=== PATIENT | male | born 1985 | race Caucasian/White ===

== ENCOUNTER 2020-10-10 00:51 | Emergency (ER) | payer BC ==
[2020-10-10 01:00] VITALS: TEMP 97.5
[2020-10-10] MEDS ORDERED: SODIUM CHLORIDE 0.9% 1,000 ML IV ONE (01:21)
[2020-10-10] MEDS ORDERED: SODIUM CHLORIDE 0.9% 1,000 ML IV SCH (01:30)
--- NOTE | 2020-10-10 02:08 | CT ---
EXAM: CT Head Without Intravenous Contrast CLINICAL HISTORY: ITS.REASON CT Reason: headache, acute TECHNIQUE: Axial computed tomography images of the head/brain without intravenous contrast. CTDI is 49.27 mGy and DLP is 1068.4 mGy-cm. This CT exam was performed using one or more of the following dose reduction techniques: automated exposure control, adjustment of the mA and/or kV according to patient size, and/or use of iterative reconstruction technique. COMPARISON: No relevant prior studies available. FINDINGS: Brain: No hemorrhage or mass effect. Ventricles: No hydrocephalus. Bones/joints: Unremarkable. Soft tissues: Unremarkable. Sinuses: Mucosal retention cyst in the left maxillary sinus. Mastoid air cells: Clear. IMPRESSION: No acute hemorrhage, hydrocephalus, or mass effect.
[2020-10-10] MEDS ORDERED: KETOROLAC 15 MG/ML 1 ML VIAL IVP STA (02:10)
[2020-10-10] MEDS ORDERED: HYDROmorphone 0.5 MG/0.5 ML SYRINGE IVP STA (02:10)
[2020-10-10] MEDS ORDERED: ONDANSETRON 4 MG/2 ML VIAL IVP STA (02:13)
[2020-10-10] MEDS ORDERED: LORazepam 2 MG/ML INJ IV STA (02:49)
--- NOTE | 2020-10-10 02:58 | ED ---
Headache HPI <Sahil Rankin - Last Filed: 10/10/20 03:40> - General Mode of arrival: ambulatory Limitations: no limitations <Valery Rollins - Last Filed: 10/10/20 19:46> - General Chief Complaint: Headache Stated Complaint: Headache Time Seen by Provider: 10/10/20 01:04 - History of Present Illness Initial Comments: 34-year-old male presenting today for chief complaint of headache light sensitivity and sound sensitivity. Patient states that he has chronic migraines, he states he has seen a neurologist in the past and has had previous imaging of his brain he denies a known history of aneurysm or masses. He states his mother does have history of brain masses he states he does not believe that they are cancerous. Patient states that for the past 6 days he has had a headache he states he has had some associated nausea light sensitivity as well as sound sensitivity which does tend to occur with his headaches. Patient states due to him being unable to abort the headache he presented to the emergency department today. He denies sudden onset of headache he states was gradual and not sure of the exact start she denies this being the worst headache was like the states it definitely has lasted the longest. Patient states he did take sumatriptan yesterday which did not help. Patient denies any focalized weakness sensation deficits he denies any speech changes visual loss or diplopia. Patient denies any fevers neck stiffness or upper respiratory symptoms. He states at times he feels achy. Patient denies diarrhea, vomiting, abdominal pain, chest pain ro dyspnea. remaining ROS (-). Upon arrival patient appears nontoxic. (Valery Rollins) - Related Data Allergies Allergy/AdvReac Type Severity Reaction Status Date / Time Morpholine Analogues Allergy Nausea & Verified 10/10/20 01:00 Vomiting shellfish derived Allergy Anaphylaxis Verified 10/10/20 01:00 Review of Systems ROS Other: All systems not noted in ROS Statement are negative. <Sahil Rankin - Last Filed: 10/10/20 03:40> ROS Other: All systems not noted in ROS Statement are negative. <Valery Rollins - Last Filed: 10/10/20 19:46> ROS Statement: Those systems with pertinent positive or pertinent negative responses have been documented in the HPI. Past Medical History Past Medical History: Asthma, Hypertension Additional Past Medical History / Comment(s): seasonal allergies, migraines History of Any Multi-Drug Resistant Organisms: None Reported Past Surgical History: Orthopedic Surgery Additional Past Surgical History / Comment(s): ACL, dental Past Psychological History: Depression Smoking Status: Never smoker Past Alcohol Use History: None Reported Past Drug Use History: None Reported <Valery Rollins - Last Filed: 10/10/20 19:46> General Exam Limitations: no limitations <Valery Rollins - Last Filed: 10/10/20 19:46> - General Exam Comments Initial Comments: General: The patient is awake and alert, in no distress Eye: +3 mm pupils are equal, round and reactive to light, extra-ocular movements are intact. No nystagmus. There is normal conjunctiva bilaterally. No signs of icterus. Ears, nose, mouth and throat: There are moist mucous membranes and no oral lesions. Neck: The neck is supple, there is no tenderness or JVD. No nuchal rigidity Cardiovascular: There is a regular rate and rhythm. No murmur, rub or gallop is appreciated. Respiratory: Lungs are clear to auscultation, respirations are non-labored, breath sounds are equal. No wheezes, stridor, rales, or rhonchi. Gastrointestinal: Soft, non-distended, non-tender abdomen without masses or organomegaly noted. There is no rebound or guarding present. Musculoskeletal: Normal ROM, no tenderness. Strength 5/5 of the UE and LE b/l. Sensation intact of the UE and LE b/l. Radial and DP pulses equal bilaterally 2+. Neurological: A&O x 3. CN II-XII intact, There are no obvious motor or sensory deficits. Coordination intact. Gait smooth and coordinated. Speech is normal. Skin: Skin is warm and dry and no rashes or lesions are noted. Psychiatric: Cooperative, appropriate mood & affect, normal judgment. (Valery Rollins) Course <Valery Rollins - Last Filed: 10/10/20 19:46> Vital Signs 10/10/20 10/10/20 00:55 03:51 Temperature 97.5 F L Pulse Rate 98 91 Respiratory 16 18 Rate Blood Pressure 142/84 130/75 O2 Sat by Pulse 100 98 Oximetry - Reevaluation(s) Reevaluation #1: Signed out pending symptomatic control with Dr. Rankin 10/10/20 03:13 (Valery Rollins) Medical Decision Making <Valery Rollins - Last Filed: 10/10/20 19:46> - Medical Decision Making Nontoxic-appearing 34-year-old male with history of migraine headaches. Patient presented for headache. He states this is the longest lasting headache. Sumatriptan 1 dose was not successful. Patient is provided numerous medications for within the emergency department. Patient has no focal deficits. CT brain (-). No falls no injuries/trauma hx. Patient has no fevers. no nuchal rgidity. appearing nontoxic. Patient signed out to Dr. Rankin pending symptom improvement at 3AM and covid test. (Valery Rollins) - Lab Data Lab Results 10/10/20 Range/Units 02:31 Coronavirus (PCR) Not Detected (Not Detectd) Disposition Is patient prescribed a controlled substance at d/c from ED?: No <Sahil Rankin - Last Filed: 10/10/20 03:40> <Valery Rollins - Last Filed: 10/10/20 19:46> Clinical Impression: Headache Disposition: HOME SELF-CARE Condition: Good Instructions (If sedation given, give patient instructions): Acute Headache (ED) Referrals: Marco Locke MD [Primary Care Provider] - 1-2 days
[2020-10-10] MEDS ORDERED: HYDROmorphone 1 MG/ML 1 ML SYRINGE IVP STA (03:44)
[2020-10-10] MEDS ORDERED: DEXAMETHASONE SOD PHOSPHATE 10 MG/ML 1 ML VIAL IV STA (03:44)
[2020-10-10] MEDS ORDERED: diphenhydrAMINE 50 MG/ML 1 ML VIAL IVP STA (03:44)
[2020-10-10] MEDS ORDERED: ORPHENADRINE 30 MG/ML 2 ML VIAL IVP STA (03:44)
[2020-10-10 03:52] VITALS: BP 130/75; PULSE 91; RESP 18
== END 2020-10-10 04:37 | disposition home or self-care (01) ==
LOC: EC 00:51
DX: G43.909 Migraine, unspecified, not intractable, without status migrainosus (principal); Z20.822 Contact with and (suspected) exposure to COVID-19; Z88.8 Allergy status to other drugs, medicaments and biological substances; Z91.013 Allergy to seafood
CPT/HCPCS: 99284; 96374; 96375; 96376; 96361; 93005; 87635; 70450; J1200; J1100; J2360; J2405; J1170 ×2; J1885; J1790